=== PATIENT | female | born 1975 | race African-American/Black ===

== ENCOUNTER 2016-08-20 20:20 | Emergency (ER) | payer OTHER ==
[2016-08-20 20:29] VITALS: BP 126/72; PULSE 60; TEMP 98.5; BMI 17.2
--- NOTE | 2016-08-20 20:40 | PDOC ---
[id number] No Limitations - History of Present Illness Initial Comments: 08/20/16 20:51 The patient is a 41 year old female, with significant past medical history of GERD, who presents today complaining of 1 week of sore throat, burning sensation in the ears, and productive cough. She states that she is coughing green/yellow sputum. She reports swelling around her eyes. She states her daughter is also sick with the same symptoms and her niece currently has strep throat. Denies wheezing, chest pain, SOB. Denies chills, fever, nausea, vomiting. Allergies: none reported Social Hx:Tobacco use (3-4 cigarettes a day) <Nancy Narvaez - Last Filed: 08/20/16 20:51> <Estela Calle - Last Filed: 08/23/16 04:16> - General Chief Complaint: Respiratory Stated Complaint: COLD SX, EAR PAIN, THROAT PAIN Time Seen by Provider: 08/20/16 20:30 Past History <Nancy Narvaez - Last Filed: 08/20/16 20:51> - Past Medical History Anemia: Yes GI Disorders: Yes (GERD) Suicide Attempt (Hx): No - Reproductive History (#): 3 Para: 1 Cervical CA: No Dysfunctional Uterine Bleeding: No Ectopic : No Endometrial CA: No Polycystic Ovaries: No Therapeutic (s) & number: No Tubal Ligation: No Spontaneous : 2 - Immunization History Immunization Up to Date: Yes - Psycho/Social/Smoking Cessation Hx Anxiety: No Suicidal Ideation: No Smoking Status: Yes Smoking History: Current every day smoker Have you smoked in the past 12 months: Yes Number of Cigarettes Smoked Daily: 4 Information on smoking cessation initiated: Yes 'Breaking Loose' booklet given: 08/20/16 Hx Alcohol Use: No Drug/Substance Use Hx: No Substance Use Type: None <Estela Calle - Last Filed: 08/23/16 04:16> - Past Medical History Allergies/Adverse Reactions: Allergies Allergy/AdvReac Type Severity Reaction Status Date / Time No Known Allergies Allergy Verified 08/20/16 20:25 Home Medications: Ambulatory Orders Azithromycin [Zithromax 250mg Tablets -] 250 mg PO UTDICT #6 tab 08/20/16 Guaifenesin Dm [Robitussin Dm -] 10 ml PO Q6H PRN #1 bottle 08/20/16 Iron mg PO DAILY 08/20/16 Omeprazole mg PO BID 08/20/16 Review of Systems - Review of Systems Able to Perform ROS?: Yes Comments:: 08/20/16 20:52 CONSTITUTIONAL: Absent: fever, no chills, no fatigue EYES: Absent: visual changes ENT: Present: ear pain, sore throat CARDIOVASCULAR: Absent: chest pain, no palpitations RESPIRATORY: Present: productive cough Absent: no SOB GI: Absent: abdominal pain, no nausea, no vomiting, no constipation, no diarrhea GENITOURINARY: Absent: dysuria, no frequency, no hematuria MUSCULOSKELETAL: Absent: back pain, no arthralgia, no myalgia SKIN: Absent: rash NEURO: Absent: headache <Nancy Narvaez - Last Filed: 08/20/16 20:51> *Physical Exam - Vital Signs Last Vital Signs Temp Pulse Resp BP Pulse Ox 98.5 F 60 18 126/72 100 08/20/16 20:20 08/20/16 20:20 08/20/16 20:20 08/20/16 20:20 08/20/16 20:20 - Physical Exam Comments: 08/20/16 20:52 GENERAL: The patient is awake, alert, and fully oriented, in no acute distress. HEAD: Normal with no signs of trauma. EYES: Pupils equal, round and reactive to light, extraocular movements intact, sclera anicteric, conjunctiva clear with no pallor. ENT: +Mild ethmoid tenderness bilaterally. Mild pharyngeal erythema without edema or exudates. nares patent. Moist mucous membranes. NECK: Tenderness with mild enlargement of anterior cervical lymph nodes. Normal range of motion, JVD, or masses. LUNGS: Breath sounds equal, clear to auscultation bilaterally. No wheeze/ crackles. HEART: Regular rate and rhythm, normal S1 and S2 without murmur or rub. ABDOMEN: Soft/nontender/nondistended. BS wnl. No guarding or rebound. No palpable masses. No hepatosplenomegaly. EXTREMITIES: Normal range of motion, no edema. No clubbing or cyanosis. No cords, erythema, or tenderness. NEUROLOGICAL: Cranial nerves II through XII grossly intact. Normal speech, normal gait. PSYCH: Normal mood, normal affect. SKIN: Warm, Dry, normal turgor, no rashes or lesions noted. <Nancy Narvaez - Last Filed: 08/20/16 20:51> - Vital Signs Last Vital Signs Temp Pulse Resp BP Pulse Ox 98.5 F 60 18 126/72 100 08/20/16 20:20 08/20/16 20:20 08/20/16 20:20 08/20/16 20:20 08/20/16 20:20 <Estela Calle - Last Filed: 08/23/16 04:16> Progress Note - Progress Note Progress Note: Documentation has been prepared under my direction and personally reviewed by me in its entirety. I attest that this documented accurately reflects all work, treatment, procedures and medical decision making performed by me. <Estela Calle - Last Filed: 08/23/16 04:16> Medical Decision Making - Medical Decision Making as noted above, this 41-year-old woman, smoker, presents with a few day history of sore throat and cough productive of greenish sputum. exam as noted above. Because the patient was in close with child currently being treated for strep pharyngitis, quick strep/throat culture sent. Quick strep negative azithromycin(Z-Fabian) will be started because of the patient's history of smoking and productive cough <Estela Calle - Last Filed: 08/23/16 04:16> *DC/Admit/Observation/Transfer - Attestations Scribe Attestion: 08/20/16 20:56 Documentation prepared by JAIRO Hartman, acting as senior medical technologist for Estela Calle MD. <Nancy Narvaez - Last Filed: 08/20/16 20:51> <Estela Calle - Last Filed: 08/23/16 04:16> Diagnosis at time of Disposition: Bronchitis - Discharge Dispostion Disposition: HOME Condition at time of disposition: Stable - Prescriptions Prescriptions: Guaifenesin Dm [Robitussin Dm -] 10 ml PO Q6H PRN #1 bottle PRN Reason: Cough Azithromycin [Zithromax 250mg Tablets -] 250 mg PO UTDICT #6 tab - Patient Instructions Printed Discharge Instructions: DI for Acute Bronchitis Additional Instructions: drink plenty of fluids azithromycin (Zpak) as directed Take your omeprazole daily for next week Robitussin DM 2 teaspoons up to 4 times a day for cough return if you have worsening cough/wheezing followup with your doctor within 5 days
[2016-08-20] MEDS ORDERED: AZITHROMYCIN 250 MG TABLET (FP) PO ONE (21:28)
[2016-08-20] MEDS ORDERED: AZITHROMYCIN 250 MG TABLET (FP) ONE (21:38)
== END 2016-08-20 21:57 | disposition home or self-care (01) ==
LOC: FER 20:20
DX: J40 Bronchitis, not specified as acute or chronic (principal); F17.210 Nicotine dependence, cigarettes, uncomplicated; K21.9 Gastro-esophageal reflux disease without esophagitis; D64.9 Anemia, unspecified
CPT/HCPCS: 87070; 87430; 99282-25

== ENCOUNTER 2017-08-21 11:01 | Emergency (ER) | payer OTHER ==
[2017-08-21 11:10] VITALS: BP 148/74; PULSE 54; TEMP 98.3; BMI 18.6
--- NOTE | 2017-08-21 11:44 | PDOC ---
History of Present Illness - General History Source: Patient Exam Limitations: No Limitations - History of Present Illness Initial Comments: 08/21/17 12:22 The patient is a 42 year old female, with a significant past medical history of scoliosis, who presents to the emergency department with abdominal pain throughout the day. The patient reports being at work and having severe abdominal pain being unable to work. The patient reports having similar episodes of pain in the past and reports they often resolve with time. 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 The patient reports her pain is localized in her epgiastrium/midumbilicalabdominal area but pain states the pain is basically everywhere. She describes the pain as a cramping, burning and sharp sensation, ranking it a 10/10 in pain intensity. She denies recent fevers, headache or dizziness. She denies recent nausea, vomit, diarrhea or constipation. She denies recent dysuria, frequency, urgency or hematuria. She denies recent chest pain or shortness of breath. Th epain does not seem associated with food, but pt states certain positions (ie hunched over to left) seems to make it better. Allergies: NKA Past surgical history: Tubal ligation Social history: Current Smoker. Denies EtOH use and recreational drug use. Primary Care Physician: <Matheus Torres - Last Filed: 08/21/17 12:22> <Xavier Campos - Last Filed: 08/21/17 18:08> - General Chief Complaint: Pain Stated Complaint: ABD PAIN Time Seen by Provider: 08/21/17 11:28 Past History <Matheus Torres - Last Filed: 08/21/17 12:22> - Past Medical History Anemia: Yes COPD: No GI Disorders: Yes (GERD) - Reproductive History (#): 3 Para: 1 Cervical CA: No Dysfunctional Uterine Bleeding: No Ectopic : No Endometrial CA: No Polycystic Ovaries: No Therapeutic (s) & number: No Tubal Ligation: No Spontaneous : 2 - Immunization History Immunization Up to Date: Yes - Suicide/Smoking/Psychosocial Hx Smoking Status: Yes Smoking History: Current every day smoker Have you smoked in the past 12 months: Yes Number of Cigarettes Smoked Daily: 10 Information on smoking cessation initiated: Yes 'Breaking Loose' booklet given: 08/20/16 Hx Alcohol Use: No Drug/Substance Use Hx: No Substance Use Type: None <BethXavier - Last Filed: 08/21/17 18:08> - Past Medical History Allergies/Adverse Reactions: Allergies Allergy/AdvReac Type Severity Reaction Status Date / Time No Known Allergies Allergy Verified 08/21/17 11:10 Home Medications: Ambulatory Orders Famotidine [Pepcid -] 40 mg PO BID #14 tablet 08/21/17 Sucralfate [Carafate -] 1 gm PO QID #40 tablet 08/21/17 Review of Systems - Review of Systems Able to Perform ROS?: Yes Comments:: 08/21/17 12:23 CONSTITUTIONAL: No reported: Fever, Chills, Diaphoresis, Generalized Weakness, Malaise, Loss of Appetite HEENT: No reported: Rhinorrhea, Nasal Congestion, Throat Pain, Throat Swelling, Difficulty Swallowing, Mouth Swelling, Ear Pain, Eye Pain, Visual Changes CARDIOVASCULAR: No reported: Chest Pain, Syncope, Palpitations, Irregular Heart Rate, Lightheadedness, Peripheral Edema RESPIRATORY: No reported: Cough, Shortness of Breath, SOB with Exertion, Orthopnea, Wheezing , Stridor, Hemoptysis GASTROINTESTINAL: +Abdominal Pain. No reported: Nausea, Vomiting, Diarrhea, Constipation, Melena, Hematochezia GENITOURINARY: No reported: Dysuria, Frequency, Urgency, Hesitancy, Flank Pain, Genital Pain MUSCULOSKELETAL: No reported: Myalgia, Arthralgia, Joint Swelling, Back pain, Neck Pain SKIN: No reported: Rash, Itching, Pallor HEMATOLOGIC/IMMUNOLOGIC: No reported: Easy Bleeding, Easy Bruising, Lymphadenopathy, Frequent infections ENDOCRINE: No reported: Unexplained Weight Gain, Unexplained Weight Loss, Heat Intolerance , Cold Intolerance NEUROLOGIC: No reported: Headache, Focal Weakness, Paresthesias, Vertigo, Lightheadedness, Unsteady Gait, Seizure, Mental Status Changes, Incontinence PSYCHIATRIC: No reported: Anxiety, Depression <Matheus Torres - Last Filed: 08/21/17 12:22> *Physical Exam - Vital Signs Last Vital Signs Temp Pulse Resp BP Pulse Ox 98.3 F 54 L 19 148/74 100 08/21/17 11:08 08/21/17 11:08 08/21/17 11:08 08/21/17 11:08 08/21/17 11:08 - Physical Exam Comments: 08/21/17 12:23 GENERAL: The patient is awake, alert, and fully oriented, pt appears to be in distress due to pain. HEAD: Normocephalic, atraumatic. EYES: extraocular movements intact, sclera anicteric, conjunctiva clear. ENT: Normal voice, Moist mucous membranes. NECK: Normal range of motion, supple LUNGS: Breath sounds equal, clear to auscultation bilaterally. No wheezes, no rhonchi, no rales. HEART: Regular rate and rhythm, normal S1 and S2 without murmur, rub or gallop. ABDOMEN: diffusely tender, voluntary guarding, MSK: mild tenderness on R paraspinal muscles EXTREMITIES: Normal range of motion, no edema. No clubbing or cyanosis. No cords, erythema, or tenderness. NEUROLOGICAL: No facial assymetry, Normal speech, moving all 4 extremities spontaneously and symmetrically PSYCH: Normal mood, normal affect. SKIN: Warm, Dry, normal turgor, <Matheus Torres - Last Filed: 08/21/17 12:22> - Vital Signs Last Vital Signs Temp Pulse Resp BP Pulse Ox 98.3 F 54 L 19 148/74 100 08/21/17 11:08 08/21/17 11:08 08/21/17 11:08 08/21/17 11:08 08/21/17 11:08 <Xavier Campos - Last Filed: 08/21/17 18:08> Heart Score/ECG Review - ECG Impressions Comment:: 08/21/17 13:08 Twelve-lead EKG was performed and reviewed by me. There is normal sinus rhythm with a rate of 49 The axis is normal. Impression sinus bradycardia <Xavier Campos - Last Filed: 08/21/17 18:08> ED Treatment Course - LABORATORY CBC & Chemistry Diagram: 08/21/17 11:52 08/21/17 11:52 - ADDITIONAL ORDERS Additional order review: 08/21/17 11:52 RBC 4.42 MCV 69.0 L MCHC 31.3 L RDW 17.9 H D MPV 10.2 Neutrophils % 65.0 Lymphocytes % 24.3 Monocytes % 8.8 Eosinophils % 1.1 Basophils % 0.8 - Medications Given in the ED: ED Medications Discontinued Medications Generic Name Dose Route Start Last Admin Trade Name Emilia PRN Reason Stop Dose Admin Famotidine 20 mg in 12 mls @ 144 mls/hr 08/21/17 11:45 08/21/17 12:04 Pepcid 20 Mg/12 Ml Push IVPUSH 08/21/17 11:49 144 mls/hr NOW ONE Administration Morphine Sulfate 2 mg 08/21/17 11:49 08/21/17 12:15 Morphine Injection - IVPUSH 08/21/17 11:50 2 mg ONCE ONE Administration Ondansetron HCl 4 mg 08/21/17 11:55 08/21/17 12:15 Zofran Injection IVPB 08/21/17 11:56 4 mg ONCE ONE Administration <Matheus Torres - Last Filed: 08/21/17 12:22> - LABORATORY CBC & Chemistry Diagram: 08/21/17 11:52 08/21/17 11:52 <Xavier Campos - Last Filed: 08/21/17 18:08> Medical Decision Making - Medical Decision Making 08/21/17 11:50 42y F hx of presents with abdominal pain. Pt states pain is recurrent for many years and she has been worked up in the past without any known dx. She hsa not any referrals to GI yet though. pt states pain is associated with some ausea, and seems positional (better when she is in a bent over position). no associated fever, diarrhea, cp, sob. on exam pt appears to be uncomfortable abd is diffusely tender as is her R flank vitals unremarkbale ddx for her pain includes pancreatitis, gall stone disease, kidney stone, gastritis will ck labs sypmtomatic releif with zofra, pepcid, fluids will reasess 08/21/17 14:27 pt still feeling pain will obtain ct abd with IV contrast will give anothe rdose of morphine 08/21/17 17:[address] with out any pathological cause of her pain will dc the pt with gi fu I discussed the physical exam findings, ancillary test results and final diagnoses with the patient. I answered all of the patient's questions. The patient was satisfied with the care received and felt comfortable with the discharge plan and treatment plan. The patient will call their primary care physician within 24 hours to arrange follow-up and will return to the Emergency Department with any new, persistent or worsening symptoms. 08/21/17 18:04 pt concerned that we do not have a diagnosis and prefers to stay in hospbital incase pain comes back. I offered her pepcid/carafate for possible gastritis., but pt declines. states she would prefer rx and that she will just come back if pain returns. i attempd to call dr. paul office for an expedited follow up - the etl architect is not present currently, but left the pts number with dr. paul office woh will call her to schedule an appointment for follow up. <Xavier Campos - Last Filed: 08/21/17 18:08> *DC/Admit/Observation/Transfer - Attestations Scribe Attestion: 08/21/17 12:23 Documentation prepared by Matheus Torres, acting as medical chemist for Xavier Campos MD, /DO. <Matheus Torres - Last Filed: 08/21/17 12:22> - Discharge Dispostion Admit: No <Xavier Campos - Last Filed: 08/21/17 18:08> Diagnosis at time of Disposition: Abdominal pain Qualifiers: Abdominal location: generalized Qualified Code(s): R10.84 - Generalized abdominal pain - Discharge Dispostion Disposition: HOME Condition at time of disposition: Improved - Prescriptions Prescriptions: Famotidine [Pepcid -] 40 mg PO BID #14 tablet Sucralfate [Carafate -] 1 gm PO QID #40 tablet - Referrals Referrals: Chriss Martinez MD [Primary Care Provider] - Lev Rizvi MD [Staff Physician] - - Patient Instructions Printed Discharge Instructions: DI for Abdominal Pain-Adult Additional Instructions: I suspect your abdminal pain may be due to gastritis. The workup is currently negative here in the ED. Return to the emergency department immediately with ANY new, persistent or worsening symptoms including any recurrent abdominal pain, fevers, chills, inability to tolerate oral intake or any other concerns. Stay away from alcohol, spicy foods, caffeine, acidic/sour foods. Take maalox if you have burning for relief. Take the medications as prescribed. We left your number with Dr. Paul office, and his office will contact you to make an appointment. You MUST call and follow up with your doctor and rn perinatal within 5 days for further evaluation of your symptoms. Your emergency department visit is not complete without a followup with your doctor for reevaluation. Results were discussed with you. Please make sure your doctor reviews the results of your emergency evaluation. - Post Discharge Activity
[2017-08-21] MEDS ORDERED: FAMOTIDINE IV 20 MG/12 ML VIAL IVPUSH ONE (11:45)
[2017-08-21] MEDS ORDERED: SODIUM CHLORIDE 1,000 ML IV ONE (11:48)
[2017-08-21] MEDS ORDERED: morphine CARPU-JECT 2 MG/1 ML DISP.SYRIN IVPUSH ONE (11:49)
[2017-08-21] MEDS ORDERED: ONDANSETRON 4 MG/2 ML VIAL IVPB ONE (11:55)
[2017-08-21] MEDS ORDERED: FAMOTIDINE 20 MG/50 ML IVPB 20 MG/50 ML MG IVPB ONE (11:58)
[2017-08-21] MEDS ORDERED: morphine CARPU-JECT 10 MG/1 ML DISP.SYRIN ONE ×2 (12:06→14:42)
[2017-08-21] MEDS ORDERED: ONDANSETRON 4 MG/2 ML VIAL ONE ×2 (12:07→15:08)
[2017-08-21 12:13] LABS: BASO % 0.8 % (0-2.0); EOS % 1.1 % (0-4.5); HEMATOCRIT 30.5 % (32.4-45.2); HEMOGLOBIN 9.6 GM/dL (10.7-15.3); LYMPH % 24.3 % (8-40); MCH 21.6 pg (25.7-33.7); MCHC 31.3 g/dl (32.0-36.0); MEAN PLT VOLUME 10.2 fl (7.5-11.1); MONO % 8.8 % (3.8-10.2); PLATELET COUNT 212 K/MM3 (134-434); RBC 4.42 M/mm3 (3.60-5.2); RDW 17.9 % (11.6-15.6); WHITE BLOOD COUNT 7.8 K/mm3 (4.0-10.0)
[2017-08-21 12:38] LABS: ALBUMIN 4.1 g/dl (3.4-5.0); ANION GAP 9 (8-16); BLOOD UREA NITROGEN 6 mg/dL (7-18); CALCIUM 9.4 mg/dL (8.5-10.1); CHLORIDE 107 mmol/L (98-107); CO2 23 mmol/L (21-32); CREATININE 0.8 mg/dL (0.55-1.02); GLUCOSE,RANDOM 90 mg/dL (74-106); LIPASE 100 U/L (73-393); POTASSIUM 3.7 mmol/L (3.5-5.1); SGOT/AST 18 U/L (15-37); SODIUM 139 mmol/L (136-145)
[2017-08-21 12:40] LABS: ALK PHOS 67 U/L (45-117); BILIRUBIN,TOTAL 0.4 mg/dL (0.2-1.0); SGPT/ALT 17 U/L (12-78); TOT PROT 7.5 g/dl (6.4-8.2)
[2017-08-21 13:59] LABS: URINE APPEARANCE SLCLOUDY; URINE BILIRUBIN NEGATIVE (NEGATIVE); URINE BLOOD NEGATIVE (NEGATIVE); URINE COLOR LTYELLOW; URINE GLUCOSE (UA) NEGATIVE (NEGATIVE); URINE KETONE NEGATIVE (NEGATIVE); URINE LEUK ESTERASE NEGATIVE (NEGATIVE); URINE NITRITE NEGATIVE (NEGATIVE); URINE PROTEIN NEGATIVE (NEGATIVE); URINE UROBILINOGEN NEGATIVE mg/dL (0.2-1.0)
[2017-08-21 14:00] LABS: HCG,QUALITATIVE URINE NEGATIVE
[2017-08-21] MEDS ORDERED: morphine CARPU-JECT 4 MG/1 ML DISP.SYRIN IVPUSH ONE (14:26)
--- NOTE | 2017-08-21 14:40 | EKG ---
Test Reason : Blood Pressure : / mmHG Vent. Rate : 049 BPM Atrial Rate : 049 BPM P-R Int : 146 ms QRS Dur : 084 ms QT Int : 516 ms P-R-T Axes : 018 023 037 degrees QTc Int : 466 ms SINUS BRADYCARDIA OTHERWISE NORMAL ECG Confirmed by Alfredo Murray MD ([id number]) on 08/21/2017 2:40:18 PM Referred By: Confirmed By:Alfredo Murray MD
[2017-08-21] MEDS ORDERED: ONDANSETRON 4 MG/2 ML VIAL IVPUSH ONE (15:18)
== END 2017-08-21 18:15 | disposition home or self-care (01) ==
LOC: JER 11:01
PROC: 3E033NZ Introduction of Analgesics, Hypnotics, Sedatives into Peripheral Vein, Percutaneous Approach (ICD-10-PCS; principal; 2017-08-21)
PROC: 3E033NZ Introduction of Analgesics, Hypnotics, Sedatives into Peripheral Vein, Percutaneous Approach (ICD-10-PCS; 2017-08-21)
PROC: 3E033GC Introduction of Other Therapeutic Substance into Peripheral Vein, Percutaneous Approach (ICD-10-PCS; 2017-08-21)
PROC: 3E033GC Introduction of Other Therapeutic Substance into Peripheral Vein, Percutaneous Approach (ICD-10-PCS; 2017-08-21)
PROC: 3E033GC Introduction of Other Therapeutic Substance into Peripheral Vein, Percutaneous Approach (ICD-10-PCS; 2017-08-21)
DX: R10.84 Generalized abdominal pain (principal)
CPT/HCPCS: 36415; 74177-TC; 80053; 81003; 83690; 84703; 85025; 93005; 93010; 96374; 96375; 99282-25

== ENCOUNTER 2017-09-06 10:43 | Day surgery (SDC) | payer OTHER ==
[2017-09-06 11:29] VITALS: BMI 17.7
[2017-09-06 13:03] VITALS: TEMP 98.2
[2017-09-06 13:24] VITALS: PULSE 45
[2017-09-06 14:38] VITALS: BP 107/56
--- NOTE | 2017-09-07 17:12 | PATH ---
Surgical Pathology Report Patient Name: ZOHREH TOWNSEND [facility]. Rec. #: [id number] /Age/Gender: 1975 (Age: 42) / F Account: [id number] Location: U-ENDOSCOPY Taken: 09/06/2017 Received: 09/06/2017 Reported: 09/07/2017 Physicians: Lev Rizvi M.D. Specimen(s) Received A: BX DUODENUM B: BX ANTRUM C: BX GE JUNCTION Clinical History Preoperative diagnosis: Dyspepsia Postoperative diagnosis: Same Final Diagnosis A. DUODENUM, BIOPSY: DUODENAL MUCOSA WITHOUT SIGNIFICANT PATHOLOGIC FINDINGS. B. STOMACH, ANTRUM, BIOPSY: GASTRIC ANTRAL MUCOSA WITH MODERATE CHRONIC GASTRITIS. IMMUNOHISTOCHEMICAL STAIN FOR H. PYLORI IS NEGATIVE. C. GASTROESOPHAGEAL (GE) JUNCTION, BIOPSY: SQUAMOUS MUCOSA WITH MILD CHRONIC INFLAMMATION AND CHANGES OF MILD REFLUX ESOPHAGITIS. NO COLUMNAR COMPONENT, INTESTINAL METAPLASIA OR DYSPLASIA IDENTIFIED Electronically Signed Lanette Shipman M.D. Gross Description A. Received in formalin, labeled "biopsy duodenum" are 2 mcmahon, irregular portions of soft tissue measuring 0.3 and 1.0 cm. in greatest dimension. The specimens are submitted in toto in one cassette. B. Received in formalin, labeled "biopsy antrum" are 2 mcmahon, irregular portions of soft tissue measuring 0.3 and 0.7 cm. in greatest dimension. The specimens are submitted in toto in one cassette. C. Received in formalin, labeled "biopsy GE junction" are 2 mcmahon, irregular portions of soft tissue measuring 0.1 and 0.4 cm. in greatest dimension. The specimens are submitted in toto in one cassette. /09/06/2017 saudi09/06/2017
== END 2017-09-06 14:47 | disposition home or self-care (01) ==
LOC: JASU-ENDO 10:43
PROVIDERS: ATTEND Internal Medicine Gastroenterology
PROC: 0DB68ZX Excision of Stomach, Via Natural or Artificial Opening Endoscopic, Diagnostic (ICD-10-PCS; 2017-09-06)
PROC: 0DB48ZX Excision of Esophagogastric Junction, Via Natural or Artificial Opening Endoscopic, Diagnostic (ICD-10-PCS; 2017-09-06)
PROC: 0DB98ZX Excision of Duodenum, Via Natural or Artificial Opening Endoscopic, Diagnostic (ICD-10-PCS; principal; 2017-09-06 10:00)
DX: K21.0 Gastro-esophageal reflux disease with esophagitis (principal); K44.9 Diaphragmatic hernia without obstruction or gangrene
CPT/HCPCS: 84703

== ENCOUNTER 2018-05-04 05:52 | Emergency (ER) | payer OTHER ==
[2018-05-04 06:01] VITALS: BP 110/70; PULSE 69; TEMP 98.1; BMI 20.7
[2018-05-04] MEDS ORDERED: SODIUM CHLORIDE 0.9% 500 ML INFUS.BAG IV ONE (06:03)
--- NOTE | 2018-05-04 06:12 | PDOC ---
Attending Attestation - Resident Resident Name: Ebonie Sawyer - ED Attending Attestation I have performed the following: I have examined & evaluated the patient, The case was reviewed & discussed with the resident, I agree w/resident's findings & plan - HPI HPI: 05/04/18 06:51 Pt comes with food poisoning after eating an undercooked burger with cheese and gonzalez. 30 min after eating she began vomiting. - Physicial Exam PE: 05/04/18 06:54 Agree with resident exam - Medical Decision Making 05/04/18 06:54 IVF; reeval and send home with instructions to continue oral hydration. 05/04/18 06:58 Pt will be signed out to the day team
--- NOTE | 2018-05-04 06:13 | PDOC ---
History of Present Illness - General Chief Complaint: Pain Stated Complaint: ABDOMINAL PAIN Time Seen by Provider: 05/04/18 06:03 - History of Present Illness Initial Comments: 43 year female with PMH of scoliosis presenting with nausea, vomiting, and diarrhea of sudden onset 30 minutes after eating a burger with cheese, gonzalez, and ketchup approximately 45 minutes prior to presentation to the ED. States that she had funny tasting ketchup and it felt "weird" as she swallowed it. She didn't finish her entire burger and left the restaurant. She denies fevers, chills, chest pain, SOB, palpitations, or other symptoms. 05/04/18 06:39 Past History - Past Medical History Allergies/Adverse Reactions: Allergies Allergy/AdvReac Type Severity Reaction Status Date / Time adhesive tape Allergy Verified 09/06/17 11:20 Home Medications: Ambulatory Orders Ondansetron HCl [Zofran] 4 mg PO PRN #10 tablet 05/04/18 Anemia: Yes Asthma: No Cancer: No Cardiac Disorders: No CVA: No COPD: No CHF: No Dementia: No Diabetes: No GI Disorders: Yes (GERD) Disorders: No HTN: No Hypercholesterolemia: No Liver Disease: No Seizures: No Thyroid Disease: No - Surgical History Abdominal Surgery: No Appendectomy: No Cardiac Surgery: No Cholecystectomy: No Lung Surgery: No Neurologic Surgery: No Orthopedic Surgery: No - Reproductive History (#): 3 Para: 1 Cervical CA: No Dysfunctional Uterine Bleeding: No Ectopic : No Endometrial CA: No Polycystic Ovaries: No Therapeutic (s) & number: No Tubal Ligation: No Spontaneous : 2 - Immunization History Immunization Up to Date: Yes - Suicide/Smoking/Psychosocial Hx Smoking Status: Yes Smoking History: Current some day smoker Have you smoked in the past 12 months: No Number of Cigarettes Smoked Daily: 10 Information on smoking cessation initiated: No 'Breaking Loose' booklet given: 08/20/16 Hx Alcohol Use: No Drug/Substance Use Hx: No Substance Use Type: None Review of Systems - Review of Systems Constitutional: No: Chills, Diaphoresis, Fever, Loss of Appetite HEENTM: No: Blurred Vision, Tearing, Recent change in vision Respiratory: No: Cough, Shortness of Breath Cardiac (ROS): No: Chest Pain, Irregular Heart Rate, Lightheadedness, Palpitations, Syncope ABD/GI: Yes: Diarrhea, Nausea, Vomiting : No: Dysuria, Discharge, Frequency, Hematuria Musculoskeletal: No: Back Pain, Joint Pain, Joint Swelling Integumentary: No: Lumps, Pallor, Pruritus, Rash Neurological: No: Headache, Numbness, Paresthesia Psychiatric: No: Anxiety, Depression Hematologic/Lymphatic: No: Anemia, Blood Clots, Easy Bleeding *Physical Exam - Vital Signs Last Vital Signs Temp Pulse Resp BP Pulse Ox 98.1 F 69 18 110/70 99 05/04/18 05:54 05/04/18 05:54 05/04/18 05:54 05/04/18 05:54 05/04/18 05:54 - Physical Exam General Appearance: Yes: Nourished, Appropriately Dressed. No: Apparent Distress HEENT: positive: EOMI, LUL, Normal ENT Inspection, Normal Voice Neck: positive: Trachea midline, Normal Thyroid, Supple. negative: Tender, Rigid Respiratory/Chest: positive: Lungs Clear, Normal Breath Sounds. negative: Chest Tender, Respiratory Distress, Accessory Muscle Use Cardiovascular: positive: Regular Rhythm, Regular Rate Gastrointestinal/Abdominal: positive: Normal Bowel Sounds, Flat, Soft. negative : Tender Lymphatic: negative: Adenopathy, Tenderness Musculoskeletal: positive: Normal Inspection. negative: CVA Tenderness Extremity: positive: Normal Capillary Refill, Normal Inspection, Normal Range of Motion. negative: Tender Integumentary: positive: Normal Color, Dry, Warm Neurologic: positive: Fully Oriented, Alert, Normal Mood/Affect, Normal Response , Motor Strength 5/5 Medical Decision Making - Medical Decision Making 43 year old female with nausea, vomiting, and diarrhea shortly after ingesting a burger that tasted "weird" to her. She has had multiple episodes of NBNB vomiting and NB diarrhea since then. High suspicion for food born illness ( preformed toxin most likely) given onset of symptoms and ingestion of beef and dairy. Will hydrate with 1 L NS and treat with Zofran prn if nausea becomes debilitating. Patient signed out to Dr. Spicer pending reassessment. 05/04/18 06:54 *DC/Admit/Observation/Transfer Diagnosis at time of Disposition: Foodborne gastroenteritis - Discharge Dispostion Disposition: HOME Condition at time of disposition: Improved - Prescriptions Prescriptions: Ondansetron HCl [Zofran] 4 mg PO PRN #10 tablet - Referrals Referrals: Chriss Martinez MD [Primary Care Provider] - - Patient Instructions Printed Discharge Instructions: DI for Food Poisoning, Food Poisoning, DI for Vomiting -- Adult Additional Instructions: You came into the ER after being food poisoned. We hydrated you and made sure your electrolytes were back to normal again. Please drink lots of fluids. We are prescribing you a medication for nausea to your pharmacy. Please make sure to go and pick it up. Make sure to schedule a follow up at your primary care doctor in the next 3 to 5 days to make sure you feel better and are getting better. Please come back to the Emergency room if you start vomiting again, spike a bad fever, or have any new or worsening concerns. Thank you for coming to the [facility] ER. We hope you feel better soon! Print Language: KYRGYZ - Post Discharge Activity
--- NOTE | 2018-05-04 07:31 | PDOC ---
*Physical Exam - Vital Signs Last Vital Signs Temp Pulse Resp BP Pulse Ox 98.1 F 69 18 110/70 99 05/04/18 05:54 05/04/18 05:54 05/04/18 05:54 05/04/18 05:54 05/04/18 05:54 - Physical Exam General Appearance: Yes: Nourished, Appropriately Dressed. No: Apparent Distress HEENT: positive: EOMI, LUL, Normal ENT Inspection Neck: positive: Trachea midline Respiratory/Chest: positive: Chest Tender, Lungs Clear, Normal Breath Sounds Cardiovascular: positive: Regular Rhythm, Regular Rate, S1, S2. negative: Murmur Vascular Pulses: Dorsalis-Pedis (R): 2+, Doralis-Pedis (L): 2+ Gastrointestinal/Abdominal: positive: Soft, Increased Bowel Sounds. negative: Tender, Organomegaly, Distended, Guarding, Rebound, Tenderness, Hepatomegaly Musculoskeletal: positive: Normal Inspection. negative: CVA Tenderness Extremity: positive: Normal Capillary Refill, Normal Inspection, Normal Range of Motion Integumentary: positive: Normal Color, Dry, Warm Neurologic: positive: domain architect II-XII NML intact, Fully Oriented, Alert, Normal Mood/ Affect Deep Tendon Reflexes: Knee (L): 2+, Knee (R): 2+ ED Treatment Course - Medications Given in the ED: ED Medications Discontinued Medications Generic Name Dose Route Start Last Admin Trade Name Freq PRN Reason Stop Dose Admin Sodium Chloride 1,000 ml 05/04/18 06:03 05/04/18 06:16 Normal Saline - IV 05/04/18 06:04 1,000 ml ONCE ONE Administration Medical Decision Making - Medical Decision Making 05/04/18 07:39 43 yo F w a PMH of scoliosis came into the ED with N/V/D (non bloody) after likely food poisoning. After receiving IV fluids she feels much better and would like to get out of the ED. Her vital signs are WNL and she is in no distress. She is stable for DC. Will send a script for zofran to her pharmacy. She knows to come back if the vomiting and diarrhea get worse, she develops a fever, or has new symtpoms. *DC/Admit/Observation/Transfer Diagnosis at time of Disposition: Foodborne gastroenteritis - Discharge Dispostion Disposition: HOME Condition at time of disposition: Improved Decision to Admit order: No - Prescriptions Prescriptions: Ondansetron HCl [Zofran] 4 mg PO PRN #10 tablet - Referrals Referrals: Chriss Martinez MD [Primary Care Provider] - - Patient Instructions Printed Discharge Instructions: DI for Food Poisoning, Food Poisoning, DI for Vomiting -- Adult Additional Instructions: You came into the ER after being food poisoned. We hydrated you and made sure your electrolytes were back to normal again. Please drink lots of fluids. We are prescribing you a medication for nausea to your pharmacy. Please make sure to go and pick it up. Make sure to schedule a follow up at your primary care doctor in the next 3 to 5 days to make sure you feel better and are getting better. Please come back to the Emergency room if you start vomiting again, spike a bad fever, or have any new or worsening concerns. Thank you for coming to the [facility] ER. We hope you feel better soon! Print Language: MOZAMBICAN - Post Discharge Activity
== END 2018-05-04 08:03 | disposition home or self-care (01) ==
LOC: JER 05:52
DX: K52.1 Toxic gastroenteritis and colitis (principal); T62.8X1A Toxic effect of other specified noxious substances eaten as food, accidental (unintentional), initial encounter; R11.2 Nausea with vomiting, unspecified; Y92.511 Restaurant or cafe as the place of occurrence of the external cause
CPT/HCPCS: 99283-25

== ENCOUNTER 2018-05-18 14:24 | Emergency (ER) | payer OTHER ==
[2018-05-18 14:48] VITALS: BP 116/67; PULSE 60; TEMP 99; BMI 17.2
[2018-05-18] MEDS ORDERED: METHOCARBAMOL 500 MG TABLET PO ONE (15:18)
[2018-05-18] MEDS ORDERED: IBUPROFEN 600 MG TABLET (FP) PO ONE ×2 (15:18→15:27)
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
[2018-05-18] MEDS ORDERED: METHOCARBAMOL 500 MG TABLET ONE (15:27)
== END 2018-05-18 17:00 | disposition home or self-care (01) ==
LOC: FER 14:24
CPT/HCPCS: 70450-TC; 72125-TC; 99281-25

== ENCOUNTER 2019-01-28 07:52 | Inpatient (IN) | payer OTHER ==
--- NOTE | 2019-01-28 07:56 | PDOC ---
History of Present Illness - General Stated Complaint: DIZZINESS - History of Present Illness Initial Comments: The pt is a 43F w/ a history of vertigo, sinus bradycardia, GERD, ectopic x2, ovarian cysts, a small hiatal hernia who presents for evaluation of 2 days of vertiginous dizziness, lightheadedness, NBNB vomiting x3, and intermittent sweats. She states that a portion of her symptoms feel like her typical vertigo but she feels lightheaded in addition to it. She tried performing her typical vertigo maneuvers with some relief. She has not tried taking anything for her symptoms. She denies sick contacts, new foods, or any new exposures. She endorses a mild cough for 2 days. She denies chest pain, SOB, abdominal pain, diarrhea, blood in her stool, dysuria, hematuria 01/28/19 08:36 Past History - Past Medical History Allergies/Adverse Reactions: Allergies Allergy/AdvReac Type Severity Reaction Status Date / Time adhesive tape Allergy Verified 01/28/19 07:58 Home Medications: Ambulatory Orders Ondansetron HCl [Zofran] 4 mg PO PRN #10 tablet 05/04/18 Ibuprofen [Motrin -] 600 mg PO TID PRN #21 tablet 05/18/18 Methocarbamol [Robaxin -] 500 mg PO BID PRN #14 tablet 05/18/18 Anemia: Yes Asthma: No Cancer: No Cardiac Disorders: No CVA: No COPD: No CHF: No Dementia: No Diabetes: No GI Disorders: Yes (GERD) Disorders: No HTN: No Hypercholesterolemia: No Liver Disease: No Seizures: No Thyroid Disease: No - Surgical History Abdominal Surgery: No Appendectomy: No Cardiac Surgery: No Cholecystectomy: No Lung Surgery: No Neurologic Surgery: No Orthopedic Surgery: No - Reproductive History (#): 3 Para: 1 Cervical CA: No Dysfunctional Uterine Bleeding: No Ectopic : No Endometrial CA: No Polycystic Ovaries: No Therapeutic (s) & number: No Tubal Ligation: No Spontaneous : 2 - Immunization History Immunization Up to Date: Yes - Suicide/Smoking/Psychosocial Hx Smoking Status: Yes Smoking History: Current every day smoker Have you smoked in the past 12 months: Yes Number of Cigarettes Smoked Daily: 6 'Breaking Loose' booklet given: 05/18/18 Hx Alcohol Use: No Drug/Substance Use Hx: No Substance Use Type: None Review of Systems - Review of Systems Able to Perform ROS?: Yes Comments:: GENERAL/CONSTITUTIONAL: +Malaise/fatigue HEAD, EYES, EARS, NOSE AND THROAT: No change in vision. No ear pain or discharge. No sore throat CARDIOVASCULAR: No chest pain or shortness of breath RESPIRATORY: Denies hemoptysis GASTROINTESTINAL: No diarrhea or constipation GENITOURINARY: No dysuria, frequency, or change in urination MUSCULOSKELETAL: No joint or muscle swelling or pain. No neck or back pain SKIN: No rash NEUROLOGIC: +Vertigo/lightheadedness, No headache, loss of consciousness, or change in strength ENDOCRINE: No increased thirst. No abnormal weight change HEMATOLOGIC/LYMPHATIC: No anemia, easy bleeding, or history of blood clots ALLERGIC/IMMUNOLOGIC: No hives or skin allergy 01/28/19 07:55 Is the patient limited Welsh proficient: No *Physical Exam - Vital Signs Vital Signs Temp Pulse Resp BP Pulse Ox 97.9 F 50 L 18 114/48 L 100 01/28/19 07:59 01/28/19 07:59 01/28/19 07:59 01/28/19 07:59 01/28/19 07:59 01/28/19 08:40 - Physical Exam Comments: GENERAL: Awake, alert, and oriented to person/place/time, in no acute distress HEAD: No signs of trauma, normocephalic, atraumatic EYES: PERRLA, EOMI, sclera anicteric, conjunctiva clear ENT: Hearing grossly normal, nares patent, oropharynx clear without exudates. Moist mucosa LUNGS: No distress, speaks full sentences, clear to auscultation bilaterally HEART: Bradycardic rate with regular rhythm, normal S1 and S2, no murmurs appreciated, peripheral pulses normal and equal bilaterally ABDOMEN: Soft, mild suprapubic pressure to palpation, normoactive bowel sounds. No guarding, no rebound EXTREMITIES: Normal inspection, Normal range of motion, no edema. No clubbing or cyanosis NEUROLOGICAL: Cranial nerves II through XII grossly intact. Normal speech, no focal sensorimotor deficits SKIN: Warm, Dry 01/28/19 07:55 ED Treatment Course - LABORATORY CBC & Chemistry Diagram: 01/28/19 08:30 01/28/19 08:30 Medical Decision Making - Medical Decision Making The pt is a 43F w/ a history of vertigo, GERD, previous ectopic x2, sinus bradycardia who presents for evaluation of 2 days of vertigo, lightheadedness, and vomiting with malaise Ddx includes vertigo, viral syndrome, orthostatic hypotension, symptomatic bradycardia, symptomatic anemia, consider ectopic ED Course CMP, CBC, Trop I, UA, Upreg CXR ECG Meclizine, Zofran, and IVF 01/28/19 08:41 Lytes wnl No CHERYL LFTs unremarkable No leukocytosis Anemia, Hgb 8.2, similar to previous (9s) ECG w/ sinus bradycardia, HR 44, no axis deviation, QTc wnl, no evidence of acute ischemia 01/28/19 09:47 Pt w/ most recent Hgb at PCP's office being in the 9s. Hx of anemia 2/2 menorrhagia. ECHO w/ evidence of PA dilation but otherwise wnl. Pt advised to f/ u with RECEIVING TANK OPERATOR. Pt states that her RECEIVING TANK OPERATOR told her that she has uterine fibroids and was told to take iron. She has avoided the iron 2/2 to constipation. 01/28/19 10:13 Pt continues to feel dizzy. 1st liter not complete but will at additional liter and Meclizine 25mg PO once. 01/28/19 10:15 Pt persistently symptomatic s/p 2L IVF and Meclizine Will admit for pre-syncope/dizziness possibly 2/2 bradycardia or anemia 01/28/19 13:19 *DC/Admit/Observation/Transfer Diagnosis at time of Disposition: Vertigo, Viral syndrome Anemia Qualifiers: Anemia type: unspecified type Qualified Code(s): D64.9 - Anemia, unspecified - Discharge Dispostion Decision to Admit order: No - Referrals - Patient Instructions - Post Discharge Activity
--- NOTE | 2019-01-28 08:01 | PDOC ---
Attending Attestation - Resident Resident Name: Sachin Singletary - HPI HPI: 01/28/19 09:25 Pt presents to the ED complaining of the acute onset of vertigo at 4:30 am. History of vertigo that resolved with evan in the past. Reports that she has had three episodes of non bloody, non bilious vomiting. Also complains of lightheadness and "feeling like I'm going to pass out" in addition to the vertigo. Patient has a history of sinus bradycardia, noted on prior ED visits. 01/28/19 09:36 - Physicial Exam PE: 01/28/19 09:36 Agree with resident exam. Patient is alert, but is keeping her eyes closed and holding her head in a fixed position secondary to vertigo. Lungs are clear. Heart has regular rate and rhythm. Abdomen is soft, non tender and non distended. 01/28/19 09:37 - Medical Decision Making 01/28/19 09:41 pt presents to the ED complaining of vertigo. symptoms are extremely consistent with peripheral vertigo. Will treat with zofran and meclizine and reassess. Also complaining of lightheadness, and is bradycardic. Will check EKG and cardiac labs and reassess. Will evaluate for other causes of syncope, including ectopic , severe anemia, and dehydration.
[2019-01-28] MEDS ORDERED: MECLIZINE HCL 25 MG TABLET (FP) PO ONE ×2 (08:12→10:10)
[2019-01-28] MEDS ORDERED: ONDANSETRON 4 MG/2 ML VIAL IVPUSH ONE (08:12)
[2019-01-28] MEDS ORDERED: SODIUM CHLORIDE 0.9% 500 ML INFUS.BAG IV ONE ×2 (08:12→10:10)
[2019-01-28] MEDS ORDERED: MECLIZINE HCL 25 MG TABLET (FP) ONE ×2 (08:36→10:24)
[2019-01-28] MEDS ORDERED: ONDANSETRON 4 MG/2 ML VIAL ONE (08:36)
[2019-01-28 09:18] LABS: ALBUMIN 3.9 g/dl (3.4-5.0); BILIRUBIN,TOTAL 0.3 mg/dL (0.2-1); BLOOD UREA NITROGEN 12.3 mg/dL (7-18); CALCIUM 8.7 mg/dL (8.5-10.1); CREATININE 0.8 mg/dL (0.55-1.3); POTASSIUM 3.8 mmol/L (3.5-5.1); TOT PROT 6.8 g/dl (6.4-8.2)
[2019-01-28 09:25] LABS: BASO % 0.3 % (0-2.0); EOS % 1.9 % (0-4.5); HEMATOCRIT 25.4 % (32.4-45.2); HEMOGLOBIN 8.2 GM/dL (10.7-15.3); LYMPH % 20.2 % (8-40); MCH 21.4 pg (25.7-33.7); MCHC 32.3 g/dl (32.0-36.0); MEAN PLT VOLUME 9.4 fl (7.5-11.1); MONO % 7.5 % (3.8-10.2); NEUT % 70.1 % (42.8-82.8); PLATELET COUNT 222 K/MM3 (134-434); RBC 3.85 M/mm3 (3.60-5.2); RDW 18.2 % (11.6-15.6); WHITE BLOOD COUNT 6.4 K/mm3 (4.0-10.0)
[2019-01-28 12:03] LABS: ANISOCYTOSIS 2+; MACROCYTOSIS 0; OVALOCYTE 1+; PLATELET ESTIMATE NORMAL; TARGET CELLS 2+
--- NOTE | 2019-01-28 12:06 | EKG ---
Test Reason : Blood Pressure : / mmHG Vent. Rate : 044 BPM Atrial Rate : 044 BPM P-R Int : 152 ms QRS Dur : 092 ms QT Int : 512 ms P-R-T Axes : 014 032 041 degrees QTc Int : 437 ms MARKED SINUS BRADYCARDIA INCOMPLETE RIGHT BUNDLE BRANCH BLOCK ABNORMAL ECG Confirmed by MD ANTONIETTA, KELLY ([id number]) on 01/28/2019 12:05:43 PM Referred By: Confirmed By:KELLY MANE MD
[2019-01-28 15:51] VITALS: BMI 17.9
[2019-01-28] MEDS ORDERED: MECLIZINE HCL 25 MG TABLET (FP) PO PRN (19:44)
[2019-01-28] MEDS ORDERED: ONDANSETRON 4 MG/2 ML VIAL IVPUSH PRN (19:44)
[2019-01-28] MEDS: HEPARIN NA (PORCINE) 5,000 UNITS/ML 1ML VIAL SQ SCH (21:55)
[2019-01-28] MEDS: DEXTROSE 5%-0.45% SALINE 1,000 ML IV SCH (21:55)
--- NOTE | 2019-01-29 02:32 | HP ---
Admitting History and Physical - Admission History of Present Illness: The pt is a 43F w/ a history of vertigo, sinus bradycardia, GERD, ectopic x2, ovarian cysts, a small hiatal hernia who presents for evaluation of 2 days of vertiginous dizziness, lightheadedness, NBNB vomiting x3, and intermittent sweats. She states that a portion of her symptoms feel like her typical vertigo but she feels lightheaded in addition to it. She tried performing her typical vertigo maneuvers with some relief. She has not tried taking anything for her symptoms. She denies sick contacts, new foods, or any new exposures. She endorses a mild cough for 2 days. - Past Medical History ...LMP: 01/21/19 - Smoking History Smoking history: Current every day smoker Have you smoked in the past 12 months: Yes Aproximately how many cigarettes per day: 6 - Alcohol/Substance Use Hx Alcohol Use: No Home Medications - Allergies Allergies/Adverse Reactions: Allergies Allergy/AdvReac Type Severity Reaction Status Date / Time adhesive tape Allergy Verified 01/28/19 07:58 - Home Medications Home Medications: Ambulatory Orders Ondansetron HCl [Zofran] 4 mg PO PRN #10 tablet 05/04/18 Ibuprofen [Motrin -] 600 mg PO TID PRN #21 tablet 05/18/18 Methocarbamol [Robaxin -] 500 mg PO BID PRN #14 tablet 05/18/18 Family Disease History - Family Disease History Family History: Unremarkable Review of Systems - Review of Systems Constitutional: reports: Weakness HENT: reports: No Symptoms Neck: reports: No Symptoms Cardiovascular: reports: No Symptoms Respiratory: reports: No Symptoms Gastrointestinal: reports: No Symptoms Genitourinary: reports: No Symptoms Physical Examination Vital Signs: Vital Signs Temperature 98.9 F 01/29/19 01:19 Pulse Rate 55 L 01/29/19 01:19 Respiratory Rate 20 01/29/19 01:19 Blood Pressure 116/51 L 01/29/19 01:19 O2 Sat by Pulse Oximetry (%) 100 01/28/19 07:59 Constitutional: Yes: No Distress Eyes: Yes: WNL HENT: Yes: WNL Neck: Yes: WNL Cardiovascular: Yes: WNL, Regular Rate and Rhythm Respiratory: Yes: WNL, Regular, CTA Bilaterally Gastrointestinal: Yes: WNL, Normal Bowel Sounds, Soft Musculoskeletal: Yes: WNL Extremities: Yes: WNL Edema: No Neurological: Yes: WNL, Alert, Oriented ...Motor Strength: WNL Labs: CBC, BMP 01/28/19 08:30 01/28/19 08:30 Problem List - Problems (1) Vertigo Assessment/Plan: Cont meclizine Cont IVF CT scan head unremarkable Cardio/neuro consults Code(s): R42 - DIZZINESS AND GIDDINESS (2) Symptomatic bradycardia Assessment/Plan: Monitored on tele Check TSH/Lyme titers Cardio consult Check echo Code(s): R00.1 - BRADYCARDIA, UNSPECIFIED (3) Anemia Assessment/Plan: Monitor H/H Code(s): D64.9 - ANEMIA, UNSPECIFIED Qualifiers: Anemia type: unspecified type Qualified Code(s): D64.9 - Anemia, unspecified
[2019-01-29 06:58] LABS: BASO % 0.2 % (0-2.0); EOS % 2.3 % (0-4.5); HEMATOCRIT 24.4 % (32.4-45.2); HEMOGLOBIN 7.8 GM/dL (10.7-15.3); LYMPH % 29.4 % (8-40); MCH 21.1 pg (25.7-33.7); MCHC 31.9 g/dl (32.0-36.0); MEAN CELL VOLUME 66.2 fl (80-96); MEAN PLT VOLUME 9.5 fl (7.5-11.1); MONO % 8.8 % (3.8-10.2); NEUT % 59.3 % (42.8-82.8); PLATELET COUNT 181 K/MM3 (134-434); RBC 3.69 M/mm3 (3.60-5.2); RDW 18.8 % (11.6-15.6); WHITE BLOOD COUNT 6.3 K/mm3 (4.0-10.0)
[2019-01-29 07:52] LABS: ALBUMIN 3.4 g/dl (3.4-5.0); BILIRUBIN,TOTAL 0.3 mg/dL (0.2-1); BLOOD UREA NITROGEN 8.9 mg/dL (7-18); CALCIUM 7.8 mg/dL (8.5-10.1); CREATININE 0.8 mg/dL (0.55-1.3); POTASSIUM 4.2 mmol/L (3.5-5.1); TOT PROT 5.9 g/dl (6.4-8.2)
[2019-01-29] MEDS: HEPARIN NA (PORCINE) 5,000 UNITS/ML 1ML VIAL SQ SCH ×2 (10:25→21:18)
--- NOTE | 2019-01-29 11:50 | CON.CARD ---
Consult Consult Specialty:: Cardiology Reason for Consultation:: dizziness - History of Present Illness History of Present Illness: Pt presents to the ED complaining of the acute onset of vertigo at 4:30 am. History of vertigo that resolved with evan in the past. Reports that she has had three episodes of non bloody, non bilious vomiting. Also complains of lightheadness and "feeling like I'm going to pass out" in addition to the vertigo. Patient has a history of sinus bradycardia, noted on prior ED visits. 01/28/19 09:36 - History Source History Provided By: Patient, Medical Record - Past Medical History ...LMP: 01/21/19 - Alcohol/Substance Use Hx Alcohol Use: No - Smoking History Smoking history: Current every day smoker Have you smoked in the past 12 months: Yes Aproximately how many cigarettes per day: 6 Home Medications - Allergies Allergies/Adverse Reactions: Allergies Allergy/AdvReac Type Severity Reaction Status Date / Time adhesive tape Allergy Verified 01/28/19 07:58 - Home Medications Home Medications: Ambulatory Orders Ondansetron HCl [Zofran] 4 mg PO PRN #10 tablet 05/04/18 Ibuprofen [Motrin -] 600 mg PO TID PRN #21 tablet 05/18/18 Methocarbamol [Robaxin -] 500 mg PO BID PRN #14 tablet 05/18/18 Review of Systems - Review of Systems Constitutional: reports: Malaise Eyes: reports: No Symptoms HENT: reports: No Symptoms Neck: reports: No Symptoms Cardiovascular: reports: No Symptoms Gastrointestinal: reports: No Symptoms Genitourinary: reports: No Symptoms Breasts: reports: No Symptoms Reported Musculoskeletal: reports: No Symptoms Integumentary: reports: No Symptoms Neurological: reports: Dizziness Endocrine: reports: No Symptoms Hematology/Lymphatic: reports: No Symptoms Psychiatric: reports: No Symptoms Vital Signs: Vital Signs Temperature 98.4 F 01/29/19 10:22 Pulse Rate 47 L 01/29/19 10:22 Respiratory Rate 17 01/29/19 10:22 Blood Pressure 109/58 L 01/29/19 10:22 O2 Sat by Pulse Oximetry (%) 100 01/28/19 07:59 Constitutional: Yes: Well Nourished, No Distress, Calm Eyes: Yes: WNL, Conjunctiva Clear, EOM Intact HENT: Yes: WNL, Atraumatic, Normocephalic Neck: Yes: WNL, Supple, Trachea Midline Respiratory: Yes: WNL, Regular, CTA Bilaterally Gastrointestinal: Yes: WNL, Normal Bowel Sounds Renal/: Yes: WNL Cardiovascular: Yes: WNL, Regular Rate and Rhythm Musculoskeletal: Yes: WNL Extremities: Yes: WNL Integumentary: Yes: WNL Neurological: Yes: WNL, Alert, Oriented ...Motor Strength: WNL Psychiatric: Yes: WNL, Alert, Oriented - Other Data Labs, Other Data: CBC, BMP 01/29/19 05:52 01/29/19 05:52 Troponin, BNP 01/28/19 22:00 Troponin I < 0.02 Troponin, BNP 01/28/19 22:00 Troponin I < 0.02 Laboratory Tests 01/28/19 01/28/19 01/28/19 08:30 08:30 08:30 WBC 6.4 RBC 3.85 Hgb 8.2 L Hct 25.4 L D MCV 66.0 L MCH 21.4 L MCHC 32.3 RDW 18.2 H Plt Count 222 MPV 9.4 Absolute Neuts (auto) 4.5 Neutrophils % 70.1 Lymphocytes % 20.2 Monocytes % 7.5 Eosinophils % 1.9 Basophils % 0.3 Nucleated RBC % 0 Hypochromia 1+ Platelet Estimate Normal Polychromasia 0 Poikilocytosis 0 Anisocytosis 2+ Microcytosis 2+ Macrocytosis 0 Target Cells 2+ Ovalocytes 1+ Sodium 142 Potassium 3.8 Chloride 111 H Carbon Dioxide 25 Anion Gap 6 L BUN 12.3 Creatinine 0.8 Est GFR (CKD-EPI)AfAm 106.13 Est GFR (CKD-EPI)NonAf 91.57 Random Glucose 92 Calcium 8.7 Total Bilirubin 0.3 AST 10 L ALT 9 L Alkaline Phosphatase 54 Creatine Kinase Troponin I < 0.02 Total Protein 6.8 Albumin 3.9 TSH Serum , Qual 01/28/19 01/28/19 01/29/19 08:30 22:00 05:52 WBC 6.3 RBC 3.69 Hgb 7.8 L Hct 24.4 L MCV 66.2 L MCH 21.1 L MCHC 31.9 L RDW 18.8 H Plt Count 181 MPV 9.5 Absolute Neuts (auto) 3.8 Neutrophils % 59.3 Lymphocytes % 29.4 D Monocytes % 8.8 Eosinophils % 2.3 Basophils % 0.2 Nucleated RBC % 0 Hypochromia Platelet Estimate Polychromasia Poikilocytosis Anisocytosis Microcytosis Macrocytosis Target Cells Ovalocytes Sodium Potassium Chloride Carbon Dioxide Anion Gap BUN Creatinine Est GFR (CKD-EPI)AfAm Est GFR (CKD-EPI)NonAf Random Glucose Calcium Total Bilirubin AST ALT Alkaline Phosphatase Creatine Kinase 69 Troponin I < 0.02 Total Protein Albumin TSH Serum , Qual Negative 01/29/19 05:52 WBC RBC Hgb Hct MCV MCH MCHC RDW Plt Count MPV Absolute Neuts (auto) Neutrophils % Lymphocytes % Monocytes % Eosinophils % Basophils % Nucleated RBC % Hypochromia Platelet Estimate Polychromasia Poikilocytosis Anisocytosis Microcytosis Macrocytosis Target Cells Ovalocytes Sodium 143 Potassium 4.2 Chloride 112 H Carbon Dioxide 24 Anion Gap 6 L BUN 8.9 Creatinine 0.8 Est GFR (CKD-EPI)AfAm 106.13 Est GFR (CKD-EPI)NonAf 91.57 Random Glucose 85 Calcium 7.8 L Total Bilirubin 0.3 AST 9 L ALT 7 L Alkaline Phosphatase 51 Creatine Kinase Troponin I Total Protein 5.9 L Albumin 3.4 TSH 0.90 Serum , Qual Imaging - Results Chest X-ray: Image Reviewed (no i/e) EKG: Image Reviewed (s annette incomplete rbbb) Problem List - Problems (1) Anemia Code(s): D64.9 - ANEMIA, UNSPECIFIED Qualifiers: Anemia type: unspecified type Qualified Code(s): D64.9 - Anemia, unspecified (2) Vertigo Code(s): R42 - DIZZINESS AND GIDDINESS (3) Viral syndrome Code(s): B34.9 - VIRAL INFECTION, UNSPECIFIED (4) Abdominal pain Code(s): R10.9 - UNSPECIFIED ABDOMINAL PAIN Qualifiers: Abdominal location: generalized Qualified Code(s): R10.84 - Generalized abdominal pain (5) Bronchitis Code(s): J40 - BRONCHITIS, NOT SPECIFIED ACUTE OR CHRONIC (6) Costochondritis Code(s): M94.0 - CHONDROCOSTAL JUNCTION SYNDROME [TIETZE] (7) Dental caries Code(s): K02.9 - DENTAL CARIES, UNSPECIFIED (8) Facial swelling Code(s): R22.0 - LOCALIZED SWELLING, MASS AND LUMP, HEAD (9) Foodborne gastroenteritis Code(s): A05.9 - BACTERIAL FOODBORNE INTOXICATION, UNSPECIFIED (10) Radiculopathy Code(s): M54.10 - RADICULOPATHY, SITE UNSPECIFIED Qualifiers: Spinal region: unspecified Qualified Code(s): M54.10 - Radiculopathy, site unspecified (11) Toothache Code(s): K08.8 - OTHER SPECIFIED DISORDERS OF TEETH AND SUPPOR * DO NOT USE * (12) Whiplash Code(s): S13.4XXA - SPRAIN OF LIGAMENTS OF CERVICAL SPINE, INITIAL ENCOUNTER Qualifiers: Encounter type: initial encounter Qualified Code(s): S13.4XXA - Sprain of ligaments of cervical spine, initial encounter Assessment/Plan dizzines s. bradycardia incomplete RBBB carotids wnl echo wnl anemia Plan 24 holter anemia w/u neurologic eval
--- NOTE | 2019-01-29 11:54 | ECHO ---
Name: ZOHREH TOWNSEND Exam:Adult Echocardiogram Study Date: 01/29/2019 08:14 AM Age: 43 yrs Reason For Study: Bradycardia Height: 66 in Weight: 111 lb BSA: 1.6 m2 MMode/2D Measurements & Calculations IVSd: 0.85 cm Ao root diam: 2.5 cm LVIDd: 4.4 cm LA dimension: 3.5 cm LVIDs: 2.3 cm LVPWd: 0.86 cm EDV(Teich): 88.6 ml LVOT diam: 2.0 cm ESV(Teich): 18.1 ml Doppler Measurements & Calculations MV E max zane: 131.0 cm/sec Ao V2 max: 109.9 cm/sec MV A max zane: 56.3 cm/sec Ao max P.8 mmHg MV E/A: 2.3 MV dec time: 0.17 sec MEKHI(V,D): 3.0 cm2 LV V1 max P.5 mmHg MR max zane: 333.9 cm/sec LV V1 max: 105.7 cm/sec MR max P.6 mmHg TR max zane: 232.6 cm/sec PA V2 max: 88.2 cm/sec TR max P.7 mmHg PA max P.1 mmHg Med Peak E' Zane: 10.6 cm/sec PI Vmax: 200.9 cm/sec Med E/e': 12.4 Lat Peak E' Zane: 13.5 cm/sec Lat E/e': 9.7 Procedure A two-dimensional transthoracic echocardiogram with color flow and Doppler was performed. Left Ventricle The left ventricular size, thickness and function are normal. The left ventricular ejection fraction is normal. E/A reversal consistent with but not diagnostic of poor LV compliance. The left ventricular w all motion is normal. Right Ventricle The right ventricle is normal in size and function. Atria Normal left and right atrial size and function. Mitral Valve The mitral valve is normal in structure and function. No significant mitral valve stenosis. There is trace mitral regurgitation. Tricuspid Valve There is mild tricuspid valve thickening. There is no tricuspid stenosis. There is mild tricuspid regurgitation. Right ventricular systolic pressure is normal. Aortic Valve The aortic valve is normal in structure and function. No hemodynamically significant valvular aortic stenosis. No aortic regurgitation is present. Pulmonic Valve The pulmonic valve is not well visualized. There is no pulmonic valvular stenosis. Trace to mild pulm onic valvular regurgitation. Great Vessels The aortic root is normal size. Pericardium/Pleura There is no pericardial effusion. Interpretation Summary The left ventricular size, thickness and function are normal The left ventricular ejection fraction is normal. E/A reversal consistent with but not diagnostic of poor LV compliance The left ventricular wall motion is normal. There is trace mitral regurgitation. There is mild tricuspid regurgitation. Right ventricular systolic pressure is normal. MD Román Cole 01/29/2019 11:53 AM
[2019-01-29] MEDS: DEXTROSE 5%-0.45% SALINE 1,000 ML IV SCH (11:59)
--- NOTE | 2019-01-29 22:40 | CONSULT ---
Consult - text type - Consultation Consultation Note: NEUROLOGY CONSULTATION is greatly appreciated: This 43 yo RH s woman lives with her daughter. PMH of chronic anemia. "Eats ice all day long." Admitted after two days of waxing and waning spinning vertigo "like the world rolling." Makes her threat Induced by turning to the right. Can only sleep on left side. + left sided buzzing tinnitus. Unsteady gait. A similar severe episode occurred 6 years ago. Milder episodes in the interval, some associated with headaches but most are not. ROS sig for intermittent Headaches since teenage years. Approx 2-3/week. Can be warned by blurred vision, "seeing stars" and/or pain behind eye (L>R). Throbbing headaches begin over the left occipital region and are associated with nausea, vomiting, photophobia and phonophobia. Few months of numbness, tingling and pain "like I was beat up" over the arms and legs, especially at night, interrupting sleep. CT of head (reviewed): Normal. Carotid duplex: Minimal intimal thickening at the carotid bifurcation without significant hemodynamic stenosis. H/H= 8/25 MCV=66 TYLOR: NE=978/70. Orthostatics not found. Cor reg, 66. No bruits. No head trauma NEURO: MS/speech: Normal CN II-XII normal without nystagmus Motor: No drift or tremor. Normal strength, tone, bulk, and reflexes. Toes downgoing Coord: No FTN Dystaxia Sensory: Normal. 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 Thank you very much, Thomas Vasquez MD
[2019-01-29] MEDS: PRAMIPEXOLE DIHYDROCHLORIDE 0.125 MG TABLET PO SCH (23:34)
[2019-01-29] MEDS: DIVALPROEX NA *ER* EXTEND REL 250 MG TABLET.SA PO SCH (23:34)
[2019-01-30] MEDS: HEPARIN NA (PORCINE) 5,000 UNITS/ML 1ML VIAL SQ SCH ×2 (11:05→22:18)
[2019-01-30] MEDS ORDERED: SUMAtriptan SUCCINATE 50 MG TABLET PO PRN (11:36)
--- NOTE | 2019-01-30 11:39 | PN ---
Progress Note (short form) - Note Progress Note: NEUROLOGY PROGRESS: Events reviewed and discussed with staff. Mother at bedside. Pt admits she did not take depakote or pramipexole because "doesn't want to take medications she doesn't need." Still with residual L occipital/hemicranial headache with associated dizziness and nausea. ++ bruxism FH++: mother admits headaches, nocturnal paresthesia and bruxism as well TYLOR: BP= 90/50 today. Prior orthostaics: Supine 94/52. Sitting 104/66. Standing 122/66 without orthostatic changes. NEURO: Unchanged Fe++= 60. 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 Thank you very much, Thomas Vasquez MD
--- NOTE | 2019-01-30 15:21 | PN ---
Progress Note, Physician History of Present Illness: Pt presents to the ED complaining of the acute onset of vertigo at 4:30 am. History of vertigo that resolved with evan in the past. Reports that she has had three episodes of non bloody, non bilious vomiting. Also complains of lightheadness and "feeling like I'm going to pass out" in addition to the vertigo. Patient has a history of sinus bradycardia, noted on prior ED visits. - Current Medication List Current Medications: Active Medications Divalproex Sodium (Depakote *Er* -) 250 mg PO HS [facility] Last Admin: 01/29/19 23:34 Dose: Not Given Ferrous Sulfate (Feosol -) 325 mg PO DAILY [facility] Heparin Sodium (Porcine) (Heparin -) 5,000 unit SQ BID [facility] Last Admin: 01/30/19 11:05 Dose: Not Given Dextrose/Sodium Chloride (D5-1/2ns -) 1,000 mls @ 75 mls/hr IV ASDIR [facility] Last Admin: 01/29/19 11:59 Dose: 75 mls/hr Meclizine HCl (Antivert -) 25 mg PO Q6H PRN PRN Reason: vertigo Last Admin: 01/29/19 10:25 Dose: 25 mg Ondansetron HCl (Zofran Injection) 4 mg IVPUSH Q8H PRN PRN Reason: NAUSEA Pramipexole Dihydrochloride (Mirapex -) 0.125 mg PO DAILY@1999 [facility] Last Admin: 01/29/19 23:34 Dose: Not Given Sumatriptan Succinate (Imitrex -) 50 mg PO PRN PRN PRN Reason: HEADACHE - Objective Vital Signs: Vital Signs Temperature 98.2 F 01/30/19 09:00 Pulse Rate 52 L 01/30/19 13:00 Respiratory Rate 20 01/30/19 09:00 Blood Pressure 99/58 L 01/30/19 13:00 O2 Sat by Pulse Oximetry (%) 100 01/28/19 07:59 Constitutional: Yes: Anxious Eyes: Yes: WNL Labs: CBC, BMP 01/29/19 05:52 01/29/19 05:52
--- NOTE | 2019-01-30 16:33 | HOL ---
Hook-up date: 2019-01-29 13:55:00 Duration: 23:50:00 Test Indications: DIZZINESS Medications: 36357 QRS complexes 38 Ventricular ectopics which represent <1 % of total QRS comp. 214 Supraventricular ectopics which represent <1 % of total QRS comp. * Paced QRS complexs which represent % of total QRS comp. * % of Time Classified as Noise VENTRICULAR ECTOPY 38 Isolated 0 Bigeminal Cycles 0 Couplets 0 Runs 0 Beats in Runs * Beats LONGEST at * BPM at :: -- * Beats FASTEST at * BPM at :: -- SUPRAVENTRICULAR ECTOPY 214 Isolated 0 Couplets 0 Runs 0 Beats in Runs * Beats LONGEST at * BPM at :: -- * Beats FASTEST at * BPM at :: -- HEART RATES 38 MIN at 06:39:57 2019-01-30 54 AVG 94 MAX at 21:21:52 2019-01-29 LONGEST RR 1.824 secs at 06:39:49 2019-01-30 SCANNED BY BEVERLY WONG ON01/30/19 1. Baseline sinus rhythm with avg hr 54 and range 38-94. 2. No significant pauses/bradycardia. 3. Occasional isolated pacs and pvcs. 4. No vt, vf, afib, aflutter, svt. 5. No diary submitted. Confirmed by VETO BARBOSA, RODNEY ([id number]) on 01/30/2019 4:32:34 PM Referred By: KAYLEE ESPINOSA DR Overread By: RODNEY LAWS MD
[2019-01-30] MEDS: BISACODYL 5 MG TABLET.DR (FP) PO ONE (17:10)
--- NOTE | 2019-01-30 20:07 | PN ---
Progress Note, Physician - Current Medication List Current Medications: Active Medications Divalproex Sodium (Depakote *Er* -) 250 mg PO HS [facility] Last Admin: 01/29/19 23:34 Dose: Not Given Ferrous Sulfate (Feosol -) 325 mg PO DAILY [facility] Heparin Sodium (Porcine) (Heparin -) 5,000 unit SQ BID [facility] Last Admin: 01/30/19 11:05 Dose: Not Given Dextrose/Sodium Chloride (D5-1/2ns -) 1,000 mls @ 75 mls/hr IV ASDIR [facility] Last Admin: 01/29/19 11:59 Dose: 75 mls/hr Meclizine HCl (Antivert -) 25 mg PO Q6H PRN PRN Reason: vertigo Last Admin: 01/29/19 10:25 Dose: 25 mg Ondansetron HCl (Zofran Injection) 4 mg IVPUSH Q8H PRN PRN Reason: NAUSEA Pramipexole Dihydrochloride (Mirapex -) 0.125 mg PO DAILY@1999 [facility] Last Admin: 01/29/19 23:34 Dose: Not Given Sumatriptan Succinate (Imitrex -) 50 mg PO PRN PRN PRN Reason: HEADACHE - Objective Vital Signs: Vital Signs Temperature 98.6 F 01/30/19 16:59 Pulse Rate 52 L 01/30/19 16:59 Respiratory Rate 18 01/30/19 16:59 Blood Pressure 126/88 01/30/19 16:59 O2 Sat by Pulse Oximetry (%) 100 01/28/19 07:59 Labs: CBC, BMP 01/29/19 05:52 01/29/19 05:52 Problem List - Problems (1) Vertigo Code(s): R42 - DIZZINESS AND GIDDINESS (2) Symptomatic bradycardia Code(s): R00.1 - BRADYCARDIA, UNSPECIFIED (3) Anemia Code(s): D64.9 - ANEMIA, UNSPECIFIED Qualifiers: Anemia type: unspecified type Qualified Code(s): D64.9 - Anemia, unspecified
[2019-01-30] MEDS: PRAMIPEXOLE DIHYDROCHLORIDE 0.125 MG TABLET PO SCH (22:22)
[2019-01-30] MEDS: DIVALPROEX NA *ER* EXTEND REL 250 MG TABLET.SA PO SCH (22:22)
[2019-01-30] MEDS: DEXTROSE 5%-0.45% SALINE 1,000 ML IV SCH (22:27)
[2019-01-31] MEDS: HEPARIN NA (PORCINE) 5,000 UNITS/ML 1ML VIAL SQ SCH (09:58)
[2019-01-31] MEDS ORDERED: FERROUS SO4 325 MG TABLET (FP) PO SCH (10:00)
--- NOTE | 2019-01-31 12:28 | PN ---
Progress Note, Physician History of Present Illness: Pt presents to the ED complaining of the acute onset of vertigo at 4:30 am. History of vertigo that resolved with evan in the past. Reports that she has had three episodes of non bloody, non bilious vomiting. Also complains of lightheadness and "feeling like I'm going to pass out" in addition to the vertigo. Patient has a history of sinus bradycardia, noted on prior ED visits. 01/28/19 09:36 - Current Medication List Current Medications: Active Medications Divalproex Sodium (Depakote *Er* -) 250 mg PO HS [facility] Last Admin: 01/30/19 22:22 Dose: 250 mg Ferrous Sulfate (Feosol -) 325 mg PO DAILY [facility] Last Admin: 01/31/19 09:58 Dose: 325 mg Heparin Sodium (Porcine) (Heparin -) 5,000 unit SQ BID [facility] Last Admin: 01/31/19 09:58 Dose: Not Given Dextrose/Sodium Chloride (D5-1/2ns -) 1,000 mls @ 75 mls/hr IV ASDIR [facility] Last Admin: 01/30/19 22:27 Dose: 75 mls/hr Meclizine HCl (Antivert -) 25 mg PO Q6H PRN PRN Reason: vertigo Last Admin: 01/29/19 10:25 Dose: 25 mg Ondansetron HCl (Zofran Injection) 4 mg IVPUSH Q8H PRN PRN Reason: NAUSEA Pramipexole Dihydrochloride (Mirapex -) 0.125 mg PO DAILY@2000 [facility] Last Admin: 01/30/19 22:22 Dose: 0.125 mg Sumatriptan Succinate (Imitrex -) 50 mg PO PRN PRN PRN Reason: HEADACHE - Objective Vital Signs: Vital Signs Temperature 98.5 F 01/30/19 19:42 Pulse Rate 52 L 01/31/19 05:53 Respiratory Rate 18 01/30/19 21:00 Blood Pressure 134/66 01/30/19 19:42 O2 Sat by Pulse Oximetry (%) 99 01/30/19 21:00 Eyes: Yes: WNL, Conjunctiva Clear, EOM Intact HENT: Yes: WNL, Atraumatic, Normocephalic Neck: Yes: WNL, Supple, Trachea Midline Cardiovascular: Yes: WNL, Regular Rate and Rhythm Respiratory: Yes: WNL, Regular, CTA Bilaterally Gastrointestinal: Yes: WNL, Normal Bowel Sounds Genitourinary: Yes: WNL Musculoskeletal: Yes: WNL Extremities: Yes: WNL Edema: No Integumentary: Yes: WNL Neurological: Yes: WNL, Alert, Oriented ...Motor Strength: WNL Psychiatric: Yes: WNL Labs: CBC, BMP 01/29/19 05:52 01/29/19 05:52 Problem List - Problems (1) Anemia Code(s): D64.9 - ANEMIA, UNSPECIFIED Qualifiers: Anemia type: unspecified type Qualified Code(s): D64.9 - Anemia, unspecified (2) Vertigo Code(s): R42 - DIZZINESS AND GIDDINESS (3) Viral syndrome Code(s): B34.9 - VIRAL INFECTION, UNSPECIFIED (4) Abdominal pain Code(s): R10.9 - UNSPECIFIED ABDOMINAL PAIN Qualifiers: Abdominal location: generalized Qualified Code(s): R10.84 - Generalized abdominal pain (5) Bronchitis Code(s): J40 - BRONCHITIS, NOT SPECIFIED ACUTE OR CHRONIC (6) Costochondritis Code(s): M94.0 - CHONDROCOSTAL JUNCTION SYNDROME [TIETZE] (7) Dental caries Code(s): K02.9 - DENTAL CARIES, UNSPECIFIED (8) Facial swelling Code(s): R22.0 - LOCALIZED SWELLING, MASS AND LUMP, HEAD (9) Foodborne gastroenteritis Code(s): A05.9 - BACTERIAL FOODBORNE INTOXICATION, UNSPECIFIED (10) Radiculopathy Code(s): M54.10 - RADICULOPATHY, SITE UNSPECIFIED Qualifiers: Spinal region: unspecified Qualified Code(s): M54.10 - Radiculopathy, site unspecified (11) Toothache Code(s): K08.8 - OTHER SPECIFIED DISORDERS OF TEETH AND SUPPOR * DO NOT USE * (12) Whiplash Code(s): S13.4XXA - SPRAIN OF LIGAMENTS OF CERVICAL SPINE, INITIAL ENCOUNTER Qualifiers: Encounter type: initial encounter Qualified Code(s): S13.4XXA - Sprain of ligaments of cervical spine, initial encounter Assessment/Plan dizzines s. bradycardia incomplete RBBB carotids wnl echo wnl anemia 24 holter wnl Plan neurologic rx d/c telemetry
[2019-01-31 15:19] VITALS: BP 105/54; PULSE 56; TEMP 98.8
[2019-02-05 04:11] LABS: SERUM IRON SATURATION 21 % (15-55); TOTAL IRON BINDING CAPACITY 291 ug/dL (250-450)
== END 2019-01-31 17:58 | disposition home or self-care (01) | DRG 111 ==
LOC: JER 07:52 → JERBED 12:25 → J4W 14:48 → OBSVTOIN 19:42
PROVIDERS: ADMIT Internal Medicine; ATTEND Internal Medicine
DX: H81.10 Benign paroxysmal vertigo, unspecified ear (principal); R00.1 Bradycardia, unspecified; G43.909 Migraine, unspecified, not intractable, without status migrainosus; I45.10 Unspecified right bundle-branch block; K21.9 Gastro-esophageal reflux disease without esophagitis; F17.210 Nicotine dependence, cigarettes, uncomplicated; G25.81 Restless legs syndrome; H83.02 Labyrinthitis, left ear; D64.9 Anemia, unspecified; B34.9 Viral infection, unspecified; H53.149 Visual discomfort, unspecified; F41.9 Anxiety disorder, unspecified; H93.19 Tinnitus, unspecified ear; N83.209 Unspecified ovarian cyst, unspecified side; K44.9 Diaphragmatic hernia without obstruction or gangrene
CPT/HCPCS: 36415; 70450-TC; 71045-TC-FY; 80053; 82550; 83540; 83550; 84443; 84484; 84703; 85025; 86618; 93005; 93010; 93225; 93226; 93306-TC; 93880-TC; 99283-25; G0378

== ENCOUNTER 2021-03-22 20:24 | Emergency (ER) | payer OTHER ==
[2021-03-22 21:13] VITALS: BP 154/56; PULSE 67; TEMP 98.3; BMI 19.2
[2021-03-22] MEDS ORDERED: IBUPROFEN 600 MG TABLET (FP) PO ONE ×2 (23:11→23:24)
== END 2021-03-22 23:28 | disposition home or self-care (01) ==
LOC: JER 20:24 → JERFT 20:24
DX: B02.9 Zoster without complications (principal)
CPT/HCPCS: 99283-25

== ENCOUNTER 2022-01-27 18:41 | Emergency (ER) | payer OTHER ==
[2022-01-27 19:02] VITALS: PULSE 88; TEMP 98.3; BMI 22.6
[2022-01-27 19:05] VITALS: BP 134/75
== END 2022-01-27 20:30 | disposition home or self-care (01) ==
LOC: JER 18:41
DX: U07.1 COVID-19 (principal)
CPT/HCPCS: 99283-25; C9803-CS; U0003; U0005

== ENCOUNTER 2022-11-20 04:27 | Day surgery (SDC) | payer OTHER ==
[2022-11-07 15:27] VITALS: BMI 16.9
[2022-11-20] MEDS ORDERED: IBUPROFEN 400 MG TABLET (FP) PO PRN (10:08)
[2022-11-20] MEDS ORDERED: ACETAMINOPHEN 325 MG TABLET (FP) PO PRN ×2 (10:08→12:32)
[2022-11-20] MEDS ORDERED: MIDAZOLAM HCL 2 MG/2 ML SINGLE DOSE VIAL ONE (11:21)
[2022-11-20] MEDS ORDERED: LIDOCAINE HCL/PF 2% SDV 5ML VIAL ONE (11:21)
[2022-11-20] MEDS ORDERED: PROPOFOL 20 ML ONE (11:21)
[2022-11-20] MEDS ORDERED: DEXAMETHASONE SOD PHOSPHATE 4 MG/1 ML VIAL ONE (11:43)
[2022-11-20] MEDS ORDERED: ONDANSETRON 4 MG/2 ML VIAL ONE (11:49)
[2022-11-20] MEDS ORDERED: KETOROLAC TROMETHAMINE 30 MG/1 ML VIAL ONE (11:49)
[2022-11-20] MEDS ORDERED: ONDANSETRON 4 MG/2 ML VIAL IVPUSH PRN (12:32)
[2022-11-20] MEDS ORDERED: oxyCODONE HCL 5 MG TABLET PO PRN (12:32)
[2022-11-20] MEDS ORDERED: LACTATED RINGERS SOLUTION 1,000 ML IV SCH (12:45)
[2022-11-20 15:02] VITALS: TEMP 97.8
[2022-11-20 15:47] VITALS: RESP 17
[2022-11-20 15:51] VITALS: BP 154/63; PULSE 48
== END 2022-11-20 14:45 | disposition home or self-care (01) ==
LOC: JASU-SURG 04:27
PROVIDERS: ATTEND Obstetrics & Gynecology
PROC: 0UB98ZZ Excision of Uterus, Via Natural or Artificial Opening Endoscopic (ICD-10-PCS; principal; 2022-11-20 10:00)
DX: N92.1 Excessive and frequent menstruation with irregular cycle (principal); D25.0 Submucous leiomyoma of uterus
CPT/HCPCS: 81025; 86850; 86900; 86901; 88305-TC; 94760